=== PATIENT | female | born 1940 | race Caucasian/White ===

== ENCOUNTER 2022-02-05 16:44 | Emergency (ER) | payer MEDICARE, BC ==
[~2022-02-05] VITALS: Ht 165.1 cm; Wt 57.0 kg
[2022-02-05 17:36] LABS: BASO # 0.1 x10^3/uL (0.0-0.2); BASO % 1 % (0-3); EOS # 0.3 x10^3/uL (0.0-0.7); EOS % 3 % (0-3); HEMATOCRIT 43.6 % (36.0-47.0); HEMOGLOBIN 14.6 g/dL (12.0-15.5); LYMPH # 2.5 x10^3/uL (1.0-4.8); LYMPH % 32 % (24-48); MEAN CORPUSCULAR HEMOGLOBIN 31 pg (25-35); MEAN CORPUSCULAR HGB CONC 34 g/dL (31-37); MEAN CORPUSCULAR VOLUME 94 fL (79-100); MONO # 0.5 x10^3/uL (0.0-1.1); MONO % 6 % (0-9); NEUT # 4.5 x10^3/uL (1.8-7.7); NEUT % 58 % (31-73); PLATELET COUNT 312 x10^3/uL (140-400); RED BLOOD COUNT 4.66 x10^6/uL (3.50-5.40); WHITE BLOOD COUNT 7.8 x10^3/uL (4.0-11.0)
--- NOTE | 2022-02-05 18:06 | PHYS DOC ---
Past Medical History Past Surgical History: Other General Adult EDM: Chief Complaint: ABNORMAL LABS HPI: HPI: Patient is a 81 year old female who presents with here by EMS from the [facility] for a UTI of which she was supposed to start taking Macrobid but they are unable to give it to her and she has elevated white blood cell count. There is poor communication between nursing facility, EMS and to nursing staff here. Nursing facility states to EMS that patient is at baseline. She has a history of Alzheimer's, diabetes, hyperlipidemia, hypertension, diarrhea. Review of Systems: Review of Systems: Constitutional: Denies fever or chills. [] Eyes: Denies change in visual acuity. [] HENT: Denies nasal congestion or sore throat. [] Respiratory: Denies cough or shortness of breath. [] Cardiovascular: Denies chest pain or edema. [] GI: Denies abdominal pain, nausea, vomiting, bloody stools or diarrhea. [] : Denies dysuria. + UTI [] Musculoskeletal: Denies back pain or joint pain. [] Integument: Denies rash. [] Neurologic: Denies headache, focal weakness or sensory changes. [] Endocrine: Denies polyuria or polydipsia. [] Lymphatic: Denies swollen glands. + Elevated white blood cells [] Psychiatric: Denies depression or anxiety. [] Heart Score: C/O Chest Pain: No HEART Score for Chest Pain: HEART Score for Chest Pain Response (Comments) Value History Slighlty/Non-Suspicious 0 ECG Nonspecific Repolarizatio 1 Age > 65 2 Risk Factors 1 or 2 Risk Factors 1 Troponin < Normal Limit 0 Total 4 Risk Factors: Risk Factors: DM, Current or recent (<one month) smoker, HTN, HLP, family history of CAD, obesity. Risk Scores: Score 0 - 3: 2.5% MACE over next 6 weeks - Discharge Home Score 4 - 6: 20.3% MACE over next 6 weeks - Admit for Clinical Observation Score 7 - 10: 72.7% MACE over next 6 weeks - Early Invasive Strategies Physical Exam: PE: Constitutional: Well developed, well nourished, no acute distress, non-toxic appearance. [] HENT: Normocephalic, atraumatic, bilateral external ears normal, oropharynx moist, no oral exudates, nose normal. [] Eyes: PERRLA, EOMI, conjunctiva normal, no discharge. [] Neck: Normal range of motion, no tenderness, supple, no stridor. [] Cardiovascular:Heart rate regular rhythm, no murmur [] Lungs & Thorax: Bilateral breath sounds clear to auscultation [] Abdomen: Bowel sounds normal, soft, slight tenderness to low mid abdomen tenderness, no masses, no pulsatile masses. [] Skin: Warm, dry, no erythema, no rash. [] Back: No tenderness, no CVA tenderness. [] Extremities: No tenderness, no cyanosis, no clubbing, ROM intact, no edema. [] Neurologic: Alert and oriented X 1, normal motor function, normal sensory function, no focal deficits noted. [] Psychologic: Affect normal, judgement normal, mood normal. [] Current Patient Data: Labs: Laboratory Tests Test 02/05/22 17:15 White Blood Count 7.8 x10^3/uL (4.0-11.0) Red Blood Count 4.66 x10^6/uL (3.50-5.40) Hemoglobin 14.6 g/dL (12.0-15.5) Hematocrit 43.6 % (36.0-47.0) Mean Corpuscular Volume 94 fL (79-100) Mean Corpuscular Hemoglobin 31 pg (25-35) Mean Corpuscular Hemoglobin Concent 34 g/dL (31-37) Red Cell Distribution Width 13.0 % (11.5-14.5) Platelet Count 312 x10^3/uL (140-400) Neutrophils (%) (Auto) 58 % (31-73) Lymphocytes (%) (Auto) 32 % (24-48) Monocytes (%) (Auto) 6 % (0-9) Eosinophils (%) (Auto) 3 % (0-3) Basophils (%) (Auto) 1 % (0-3) Neutrophils # (Auto) 4.5 x10^3/uL (1.8-7.7) Lymphocytes # (Auto) 2.5 x10^3/uL (1.0-4.8) Monocytes # (Auto) 0.5 x10^3/uL (0.0-1.1) Eosinophils # (Auto) 0.3 x10^3/uL (0.0-0.7) Basophils # (Auto) 0.1 x10^3/uL (0.0-0.2) Laboratory Tests 02/05/22 17:15 Vital Signs: Vital Signs Date Time Temp Pulse Resp B/P (MAP) Pulse Ox O2 Delivery O2 Flow Rate FiO2 02/05/22 16:46 98.3 98 16 128/88 (101) 95 98.3 EKG: EK and read by Dr. Toribio as sinus rhythm with RVH, incomplete right bundle branch block, no STEMI Radiology/Procedures: Radiology/Procedures: [] Impression: [address] [address] IMAGING REPORT Signed PATIENT: RAY CASTAÑEDA ACCOUNT: [id number] : 1940 LOCATION: ER AGE: 81 SEX: F EXAM STATUS: PRE ER ORD. PHYSICIAN: JUVENTINO PIERSON APRN REASON: AMS PROCEDURE: PORTABLE CHEST 1V AP chest x-ray HISTORY: Altered mental status. FINDINGS: Heart size normal. Tortuosity/ectasia aortic arch. No pneumothorax, pulmonary opacities or pleural effusions. The bones are normal. IMPRESSION: No acute process. Electronically signed by: Pamela Barnett MD (02/05/2022 6:04 PM) [facility] [place] DICTATED and SIGNED BY: PAMELA BARNETT MD DATE: 02/05/[address] [address] IMAGING REPORT Signed PATIENT: RAY CASTAÑEDA ACCOUNT: [id number] : 1940 LOCATION: ER AGE: 81 SEX: F EXAM STATUS: PRE ER ORD. PHYSICIAN: JUVENTINO PIERSON APRN REASON: tenderness to lower abdomen PROCEDURE: CT ABDOMEN PELVIS WO CONTRAST Exam: CT of abdomen and pelvis without contrast INDICATION: Tenderness to lower abdomen, Back pain TECHNIQUE: Sequential axial images through the abdomen and pelvis obtained without IV contrast. Sagittal and coronal reformatted images were reconstructed from the axial data and reviewed. Exposure: One or more of the following in the visualized dose reduction techniques were utilized for this examination: 1. Automated exposure control 2. Adjustment of the MA and/or KV according to patient size 3. Use of iterative of reconstructive technique Comparisons: None FINDINGS: Heart size is normal. Mild coronary artery calcium lesions. Visualized lung bases are clear. No pleural effusion. Liver, spleen, pancreas, gallbladder and adrenals are unremarkable. No perinephric inflammation or hydronephrosis. No renal or ureteral calculi are identified. Bladder is partially distended and appears thin-walled. Uterus not enlarged. No abnormal adnexal mass. Moderate amount stool noted throughout the colon. Appendix is nonidentified. No free intra-abdominal air or fluid. No obstruction. Abdominal aorta has normal course and caliber. No enlarged intra-abdominal lymph nodes are identified. No suspicious osseous lesions or acute fractures. IMPRESSION: Moderate amount stool noted throughout the colon, correlate for constipation. Electronically signed by: Andrea Galarza MD (02/05/2022 6:45 PM) [facility] DICTATED and SIGNED BY: ANDREA GALARZA MD DATE: 02/05/221840 Course & Med Decision Making: Course & Med Decision Making Pertinent Labs and Imaging studies reviewed. (See chart for details) See HPI. Alert and oriented x4. Ambulatory with a steady gait. Speaks in full clear sentences. Skin pink warm and dry. Patient states no pain and states yes that she feels fine. Abdomen is soft but she winces at low mid abdomen te nderness. No extremity edema. Skin pink warm and dry. Blood work looks generally unremarkable. She does have a slightly elevated creatinine BUN. Her urinalysis shows no infection. Her white blood cell count of which the nursing facility sent her over for shows no elevation. She is remained afebrile. She is nonseptic appearing. CT abdomen pelvis shows constipation. Chest x-ray shows no acute findings. Vital signs are within normal limits. There are no labs to look back on as the patient has never been here before and nursing facility do not send any labs. Patient is sent back to the nursing facility. She does not need any antibiotics and does not seem to have an infection. [] Dragon Disclaimer: Dragon Disclaimer: This electronic medical record was generated, in whole or in part, using a voice recognition dictation system. Departure Departure Impression: Primary Impression: Constipation Qualified Codes: K59.00 - Constipation, unspecified Disposition: HOME / SELF CARE / HOMELESS Condition: STABLE Patient Instructions: Constipation, Adult Additional Instructions: Have repeat kidney function blood work and urinalysis in a couple days. Patient does not need any antibiotics as her urine does not look infected. She does not have an elevated white count. No signs of sepsis. Be sure to stay hydrated. Scripts Docusate Sodium (COLACE) 100 Mg Capsule 1 CAP PO BID for 10 Days, #20 CAP 0 Refills STOP IF DIARRHEA OCCURS Prov: JUVENTINO PIERSON APRN 02/05/22 JUVENTINO PIERSON APRN February 05, 2022 18:06
[2022-02-05 18:39] LABS: HYALINE CASTS, URINE MODERATE /HPF
[2022-02-05 18:41] LABS: BACTERIA,URINE 0 /HPF (0-FEW); RBC,URINE OCC /HPF (0-2); WBC,URINE 0 /HPF (0-4)
[2022-02-05 18:41] LABS: CALCIUM 9.5 mg/dL (8.5-10.1); CREATININE 1.1 mg/dL (0.6-1.0); GFR 47.9
[2022-02-05 18:47] LABS: ALBUMIN 3.3 g/dL (3.4-5.0); TOTAL BILIRUBIN 0.3 mg/dL (0.2-1.0); TOTAL PROTEIN 6.7 g/dL (6.4-8.2)
--- NOTE | 2022-02-05 18:47 | RAD ---
Exam: CT of abdomen and pelvis without contrast INDICATION: Tenderness to lower abdomen, Back pain TECHNIQUE: Sequential axial images through the abdomen and pelvis obtained without IV contrast. Sagit candelario and coronal reformatted images were reconstructed from the axial data and reviewed. Exposure: One or more of the following in the visualized dose reduction techniques were utilized for this examination: 1. Automated exposure control 2. Adjustment of the MA and/or KV according to patient size 3. Use of iterative of reconstructive technique Comparisons: None FINDINGS: Heart size is normal. Mild coronary artery calcium lesions. Visualized lung bases are clear. No pleur al effusion. Liver, spleen, pancreas, gallbladder and adrenals are unremarkable. No perinephric inflammation or hydronephrosis. No renal or ureteral calculi are identified. Bladder is partially distended and appears thin-walled. Uterus not enlarged. No abnormal adnexal mass . Moderate amount stool noted throughout the colon. Appendix is nonidentified. No free intra-abdominal air or fluid. No obstruction. Abdominal aorta has normal course and caliber. No enlarged intra-abdominal lymph nodes are identified. No suspicious osseous lesions or acute fractures. IMPRESSION: Moderate amount stool noted throughout the colon, correlate for constipation. Electronically signed by: Andrea Hunt MD (02/05/2022 6:45 PM) [facility]
[2022-02-05] MEDS ORDERED: IV NORMAL SALINE 500ML BAG 500 ML IV ONE (19:00)
[2022-02-05] MEDS ORDERED: DOCU-109 PO (19:00)
[2022-02-05 19:12] VITALS: BP 134/63
--- NOTE | 2022-02-07 01:14 | EKG ---
[facility] [address] [place] [address] Test Date: 2022-02-05 Test Time: 17:25:58 Pat Name: RAY CASTAÑEDA Department: Room: Gender: F Assistant Import Manager: [id number] : 1940 Requested By: JUVENTINO PIERSON Order Number: [id number] Reading MD: Gurwinder Carrion Measurements Intervals [place] Rate: 64 P: 141 PA: 164 QRS: -163 QRSD: 96 T: 132 QT: 420 QTc: 438 Interpretive Statements SINUS RHYTHM INCOMPLETE RIGHT BUNDLE BRANCH BLOCK NON SPECIFIC ST-T WAVE CHANGES Electronically Signed On 02-08-2022 11:20:52 CDT by Gurwinder Carrion
== END 2022-02-05 19:25 | disposition home or self-care (01) ==
LOC: ER 16:44
DX: K59.00 Constipation, unspecified (principal); N39.0 Urinary tract infection, site not specified; D72.829 Elevated white blood cell count, unspecified; G30.9 Alzheimer's disease, unspecified; E11.9 Type 2 diabetes mellitus without complications; E78.5 Hyperlipidemia, unspecified; I10 Essential (primary) hypertension
CPT/HCPCS: 36415; 71045; 74176; 80053; 81001; 84484; 85025; 93005; 99285